=== PATIENT | male | born 1955 | race Caucasian/White ===

== ENCOUNTER → 2024-04-11 | Day surgery (SDC) | payer MEDICAID ==
[~2024-04-11] VITALS: Ht 157.5 cm; Wt 108.9 kg
[~2024-04-11] MED LIST: AMLO10TA80 PO; ASPI-1497 PO; BALANCED SALT IRRIG SOLN 15ML ONE; BALANCED SALT IRRIG SOLN COMB1 500ML OP NR; CYCLOPENTOLATE HCL 1% OPHTH DROPS 2ML LEFTEYE SCH; FENTANYL CITRATE/PF 50MCG/ML 2ML VIAL ONE; GLIP5TAB22 PO; HYALURONATE SODIUM 10MG/ML 0.55ML SYRINGE IO ONE; HYDR25TA PO; KETOROLAC 30MG/ML VIAL ONE; LISI40TA13 PO; METF-416 PO; MIDAZOLAM HCL 2 MG/2 ML VIAL ONE; PHENYLEPHRINE HCL 10% OPHTH DROPS 5ML LEFTEYE ONE; PIOG30TA10 PO; SITA100T11 PO; TROPICAMIDE 1% OPHTH DROPS 15ML LEFTEYE ONE; TRYPAN BLUE 0.5 ML DISP.SYRIN IO ONE
[2024-04-11] MEDS: SODIUM CHLORIDE 0.9% 1,000 ML IV SCH (07:30)
== END | disposition home or self-care (01) ==
LOC: OR 06:42
PROVIDERS: ATTEND Ophthalmology
DX: E11.36 Type 2 diabetes mellitus with diabetic cataract (principal); H25.89 Other age-related cataract; I10 Essential (primary) hypertension; Z79.899 Other long term (current) drug therapy; Z98.890 Other specified postprocedural states; Z79.82 Long term (current) use of aspirin; Z79.84 Long term (current) use of oral hypoglycemic drugs
CPT/HCPCS: 66984; J3010; J1885; J3490 ×2; J2250; V2632; Q9957